=== PATIENT | male | born 2000 | race Caucasian/White ===

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

== ENCOUNTER 2022-06-10 12:28 | Emergency (ER) | payer BC, OTHER ==
--- NOTE | 2022-06-10 15:16 | RAD REPORT ---
EXAM DESCRIPTION: RAD - Ankle Left 3 View -06/10/2022 3:07 pm CLINICAL HISTORY: Left ankle pain status post injury FINDINGS: No fracture or dislocation is seen. Soft tissue swelling
--- NOTE | 2022-06-10 15:17 | RAD REPORT ---
EXAM DESCRIPTION: RAD - Foot Left 3 View - 06/10/2022 3:07 pm CLINICAL HISTORY: Left Foot pain status post injury FINDINGS: No fracture or dislocation is seen.
--- NOTE | 2022-06-10 16:24 | ER ---
Nurse's Notes [facility] Name: David Hancock Age: 22 yrs Sex: Male : 2000 Arrival Date: 06/10/2022 Time: 12:34 Bed 11 Private MD: Diagnosis: Sprain of ankle Presentation: 06/10 13:00 Chief complaint: Patient states: left ankle pain. Pt reports he stepped wrong and aa5 rolled left ankle yesterday. Coronavirus screen: At this time, the client does not indicate any symptoms associated with coronavirus-19. Ebola Screen: Patient denies travel to an Ebola-affected area in the 21 days before illness onset. Initial Sepsis Screen: Does the patient meet any 2 criteria? No. Patient's initial sepsis screen is negative. Does the patient have a suspected source of infection? No. Patient's initial sepsis screen is negative. Risk Assessment: Do you want to hurt yourself or someone else? Patient reports no desire to harm self or others. Onset of symptoms was June 09, 2022. 13:00 Acuity: BRANDIN 4 aa5 13:00 Acuity: BRANDIN 4 aa5 13:00 Method Of Arrival: Ambulatory aa5 Historical: - Allergies: 13:00 No Known Allergies; aa5 - PMHx: 13:00 None; aa5 - PSHx: 13:00 Left wrist; L ankle; aa5 - Immunization history:: Adult Immunizations unknown. - Social history:: Smoking status: Patient reports the use of cigarette tobacco products, denies chronic smoking, but will smoke occasionally. Screenin:33 Abuse screen: Denies threats or abuse. Nutritional screening: No deficits noted. jd3 Tuberculosis screening: No symptoms or risk factors identified. Fall Risk None identified. Assessment: 15:58 General: Appears comfortable, Behavior is cooperative, appropriate for age. Pain: em6 Complains of pain in left ankle Pain currently is 10 out of 10 on a pain scale. Quality of pain is described as throbbing, pulsating. Neuro: Rush Agitation-Sedation Scale (RASS): 0 - Alert and Calm Level of Consciousness is awake, alert, obeys commands, Oriented to person, place, time, situation. Cardiovascular: Heart tones present Patient's skin is warm and dry. Respiratory: Airway is patent Respiratory effort is even, unlabored, Respiratory pattern is regular, symmetrical, Breath sounds are clear bilaterally. GI: No signs and/or symptoms were reported involving the gastrointestinal system. : No signs and/or symptoms were reported regarding the genitourinary system. EENT: No signs and/or symptoms were reported regarding the EENT system. Derm: No signs and/or symptoms reported regarding the dermatologic system. Musculoskeletal: Range of motion: limited in left ankle Swelling present in left ankle. 16:33 Reassessment: Patient appears in no apparent distress at this time. Patient and/or jd3 family updated on plan of care and expected duration. Pain level reassessed. Patient is alert, oriented x 3, equal unlabored respirations, skin warm/dry/pink. Vital Signs: 13:01 BP 139 / 64; Pulse 66; Resp 16 S; Temp 99.0(TE); Pulse Ox 99% on R/A; Weight 86.18 kg aa5 (R); Height 6 ft. 1 in. (185.42 cm) (R); 13:01 Body Mass Index 25.07 (86.18 kg, 185.42 cm) aa5 ED Course: 12:34 Patient arrived in ED. am2 12:51 Matt Sandhu PA is PHCP. [facility] 12:51 Phil Soriano MD is Attending Physician. [facility] 13:00 Triage completed. aa5 13:00 Arm band placed on. aa5 15:08 Ankle Left 3 View XRAY In Process Unspecified. EDMS 15:08 Foot Left 3 View XRAY In Process Unspecified. EDMS 16:24 Morris Hay MD is Referral Physician. [facility] 16:32 Lore Moy, GRACIELA is Primary Nurse. iw 16:33 Patient has correct armband on for positive identification. Bed in low position. Call jd3 light in reach. Side rails up X 1. Adult w/ patient. 16:33 No provider procedures requiring assistance completed. Patient did not have IV access jd3 during this emergency room visit. Administered Medications: No medications were administered Medication: 16:33 VIS not applicable for this client. jd3 Outcome: 16:24 Discharge ordered by . isabelm 16:32 Patient left the ED. iw 16:33 Discharged to home ambulatory, with family. jd3 16:33 Discharge instructions given to patient, Instructed on discharge instructions, follow up and referral plans. medication usage, Demonstrated understanding of instructions, follow-up care, medications, Prescriptions given X 1. 16:33 Condition: stable jd3 Signatures: Dispatcher [employer] Matt Parson PA PA jmm Williams, Irene RN Yaritza Kelly RN RN aa5 Rebeca Lema Jonathon, RN RN jd3 Kadie Gurrola RN RN em6 Corrections: (The following items were deleted from the chart) 13:01 13:00 PMHx: Anxiety; aaSilver acuña
--- NOTE | 2022-06-10 16:24 | EDPHYS ---
Physician Documentation [facility] Name: David Hancock Age: 22 yrs Sex: Male : 2000 Arrival Date: 06/10/2022 Time: 12:34 Bed 11 Private MD: ED Physician Phil Soriano HPI: 06/10 13:02 This 22 yrs old Male presents to ER via Ambulatory with complaints of Ankle Injury - jmm pain. 13:02 The patient presents with an injury, pain. Onset: The symptoms/episode began/occurred jmm acutely, 1 day(s) ago. Is a 22-year-old male with no chronic medical conditions presents emerged part with complaints of swelling to the left ankle. Patient states he stepped in a pothole. Denies other injury. Patient states having a history of a Zarate fracture in the same foot.. Historical: - Allergies: 13:00 No Known Allergies; aa5 - PMHx: 13:00 None; aa5 - PSHx: 13:00 Left wrist; L ankle; aa5 - Immunization history:: Adult Immunizations unknown. - Social history:: Smoking status: Patient reports the use of cigarette tobacco products, denies chronic smoking, but will smoke occasionally. ROS: 13:02 Constitutional: Negative for fever, chills, and weight loss, Cardiovascular: Negative jmm for chest pain, palpitations, and edema, Respiratory: Negative for shortness of breath, cough, wheezing, and pleuritic chest pain. 13:02 MS/extremity: Positive for injury or acute deformity, pain, swelling. 13:02 All other systems are negative. Exam: 13:02 Constitutional: This is a well developed, well nourished patient who is awake, alert, jmm and in no acute distress. Head/Face: atraumatic. Eyes: EOMI, no conjunctival erythema appreciated ENT: Moist Mucus Membranes Neck: Trachea midline, Supple Chest/axilla: Normal chest wall appearance and motion. Cardiovascular: Regular rate and rhythm. No edema appreciated Respiratory: Normal respirations, no respiratory distress appreciated Abdomen/GI: Non distended Back: Normal ROM Skin: General appearance color normal 13:02 Musculoskeletal/extremity: Swelling noted to left ankle, pain noted to the base of the fifth metatarsal, compartments are soft, full dorsalis pedis pulse, neurovascular intact. 13:02 Skin: Appearance: Color: normal in color. 13:02 Neuro: Orientation: is normal, Mentation: is normal, Memory: is normal. 13:02 Psych: Behavior/mood is pleasant, cooperative. Vital Signs: 13:01 BP 139 / 64; Pulse 66; Resp 16 S; Temp 99.0(TE); Pulse Ox 99% on R/A; Weight 86.18 kg aa5 (R); Height 6 ft. 1 in. (185.42 cm) (R); 13:01 Body Mass Index 25.07 (86.18 kg, 185.42 cm) aa5 MDM: 13:02 Patient medically screened. [facility] 16:23 Data reviewed: vital signs, nurses notes. Counseling: I had a detailed discussion with [facility] the patient and/or guardian regarding: the historical points, exam findings, and any diagnostic results supporting the discharge/admit diagnosis, radiology results, the need for outpatient follow up, to return to the emergency department if symptoms worsen or persist or if there are any questions or concerns that arise at home. 06/10 13:03 Order name: Ankle Left 3 View XRAY; Complete Time: 15:20 [facility] 06/10 13:03 Order name: Foot Left 3 View XRAY; Complete Time: 15:20 [facility] 06/10 15:20 Order name: Joe wrap-joint; Complete Time: 16:06 [facility] Administered Medications: No medications were administered Disposition Summary: 06/10/22 16:24 Discharge Ordered Location: Home [facility] Condition: Stable [facility] Diagnosis - Sprain of ankle [facility] Followup: [facility] - With: Morris Hay MD - When: 2 - 3 days - Reason: Recheck today's complaints, Continuance of care, Re-evaluation by your physician Discharge Instructions: - Discharge Summary Sheet [facility] - Ankle Sprain [facility] Forms: - Medication Reconciliation Form [facility] - Thank You Letter [facility] - Antibiotic Education [facility] - Prescription Opioid Use [facility] Prescriptions: - Diclofenac Sodium 75 mg Oral Tablet Sustained Release - take 1 tablet by ORAL route 2 times per day; 30 tablet; Refills: 0, Product [facility] Selection Permitted Signatures: Dispatcher [employer] Matt Parson PA PA jmm Calderon, Audri RN RN aa5 Corrections: (The following items were deleted from the chart) 13:01 13:00 PMHx: Anxiety; aa5 aa5
[2022-06-10 17:42] VITALS: BP 139/64; TEMP 99; O2SAT 99
== END 2022-06-10 16:32 | disposition home or self-care (01) ==
LOC: ER 12:28
DX: S93.402A Sprain of unspecified ligament of left ankle, initial encounter (principal); F17.210 Nicotine dependence, cigarettes, uncomplicated
CPT/HCPCS: 99283

== ENCOUNTER 2022-06-12 18:56 | Emergency (ER) | payer BC ==
--- NOTE | 2022-06-12 20:19 | RAD REPORT ---
EXAM DESCRIPTION: CT - [id number] - 06/12/2022 8:05 pm CLINICAL HISTORY: Trauma, head and neck injury. Head injury COMPARISON: No comparisons TECHNIQUE: Axial 5 mm thick images of the head were obtained. Axial 2 mm thick images of the cervical spine were obtained with sagittal and coronal reconstruction images generated and reviewed. All CT scans are performed using dose optimization technique as appropriate and may include automated exposure control or mA/KV adjustment according to patient size. FINDINGS: CT HEAD WITHOUT CONTRAST: No acute hemorrhage, hydrocephalus or extra-axial collection is identified.No areas of brain edema or midline shift. The paranasal sinuses and mastoids are clear.The calvarium is intact. CT CERVICAL SPINE WITHOUT CONTRAST: No fracture or subluxation.No prevertebral soft tissues swelling is identified. IMPRESSION: No acute intracranial or cervical spine findings.
[2022-06-12] MEDS ORDERED: LORazepam 2 MG/ML VIAL ONE (20:47)
[2022-06-12 21:03] LABS: Absolute Lymphocytes (CBC) 1.9 K/uL (0.7-4.9); Hematocrit 42.8 % (39.6-49.0); Lymphocytes % 23.2 % (15.3-44.8); MCV 82.8 fL (80-100); MPV 7.6 fL (7.6-11.3); RBC Red Blood Cell Count 5.18 M/uL (4.33-5.43)
[2022-06-12 21:23] LABS: Potassium 3.4 mmol/L (3.5-5.1)
--- NOTE | 2022-06-12 21:35 | ER ---
Nurse's Notes [facility] Name: David Hancock Age: 22 yrs Sex: Male : 2000 Arrival Date: 06/12/2022 Time: 19:19 Bed 11 Private MD: Diagnosis: Anxiety disorder, unspecified;Hyperventilation;Syncope;Unspecified injury of head, initial encounter Presentation: 06/12 19:42 Chief complaint: Patient states: I feel dizzy, short of breath, and having chest pain. bm7 I passed out and hit me head. Coronavirus screen: At this time, the client does not indicate any symptoms associated with coronavirus-19. Ebola Screen: No symptoms or risks identified at this time. Initial Sepsis Screen: Does the patient meet any 2 criteria? No. Patient's initial sepsis screen is negative. Does the patient have a suspected source of infection? No. Patient's initial sepsis screen is negative. Risk Assessment: Do you want to hurt yourself or someone else? Patient reports no desire to harm self or others. Onset of symptoms is unknown. 19:42 Method Of Arrival: Law Enforcement: [employer] [facility] 19:42 Acuity: BRANDIN 3 bm7 Triage Assessment: 19:49 General: Appears distressed, uncomfortable, Behavior is agitated, anxious, restless. bm7 Pain: Complains of pain in chest and forehead. EENT: No deficits noted. No signs and/or symptoms were reported regarding the EENT system. Neuro: No deficits noted. Neuro: Level of Consciousness is awake, alert, obeys commands, Oriented to person, place, time, situation, Buyer Planner are equal bilaterally Weakness Gait is steady, Speech is normal, Facial symmetry appears normal, Facial droop on right, Pupils are PERRLA, Reports dizziness, headache a syncopal episode weakness. Cardiovascular: Chest pain is described as mild. Respiratory: Reports shortness of breath at rest on exertion Airway is patent Respiratory effort is even, unlabored, Respiratory pattern is regular, symmetrical, Breath sounds are clear bilaterally. GI: No deficits noted. No signs and/or symptoms were reported involving the gastrointestinal system. : No deficits noted. No signs and/or symptoms were reported regarding the genitourinary system. Derm: No deficits noted. No signs and/or symptoms reported regarding the dermatologic system. Musculoskeletal: No deficits noted. No signs and/or symptoms reported regarding the musculoskeletal system. Injury Description: Laceration sustained to forehead is jagged, superficial, 0.5 to 2.5 cm long, not bleeding, was sustained 1-2 hours ago. no active bleeding noted at this time. Historical: - Allergies: 19:49 No Known Allergies; bm7 - Home Meds: 19:49 Prozac Oral once daily [Active]; bm7 - PMHx: 19:49 Anxiety; bm7 - PSHx: 19:49 Left wrist; L ankle; bm7 - Immunization history:: Adult Immunizations up to date. - Social history:: Smoking status: Reported history of juuling and/or vaping. Screenin:54 Abuse screen: Denies threats or abuse. Nutritional screening: No deficits noted. bm7 Tuberculosis screening: No symptoms or risk factors identified. Fall Risk None identified. Assessment: 20:54 Reassessment: No changes from previously documented assessment. Patient and/or family [facility] updated on plan of care and expected duration. Pain level reassessed. Patient is alert, oriented x 3, equal unlabored respirations, skin warm/dry/pink. Vital Signs: 19:42 BP 137 / 68; Pulse 123; Resp 24; Temp 98.3(TE); Pulse Ox 100% on R/A; Weight 86.18 kg bm7 (R); Height 6 ft. 11 in. (210.82 cm); Pain 10/10; 20:56 BP 140 / 70; Pulse 100; Resp 20; Pulse Ox 100% on R/A; bm7 22:19 BP 142 / 68; Pulse 84; Resp 16; Pulse Ox 100% on R/A; bm7 19:42 Body Mass Index 19.39 (86.18 kg, 210.82 cm) bm7 ED Course: 19:19 Patient arrived in ED. ja2 19:23 Chu Nicole MD is Attending Physician. kdr 19:41 Hanna Collins, GRACIELA is Primary Nurse. bm7 19:49 Triage completed. bm7 19:49 Arm band placed on right wrist. bm7 20:07 CT Head C Spine In Process Unspecified. EDMS 20:54 No apparent distress. Awaiting lab results. bm7 20:54 Patient has correct armband on for positive identification. Bed in low position. Call [facility] light in reach. Side rails up X2. Adult w/ patient. Security at bedside. Client placed on continuous cardiac and pulse oximetry monitoring. NIBP monitoring applied. teletypesetter monitor on. Warm blanket given. 20:54 Initial lab(s) drawn, by me, sent to lab. EKG done, by ED staff, reviewed by Chu Nicole MD. Inserted saline lock: 20 gauge in right antecubital area, using aseptic technique. Blood collected. Missed attempt(s): 20 gauge in left antecubital area. Bleeding controlled, band aid applied, catheter tip intact. Patient maintains SpO2 saturation greater than 95% on room air. 22:19 No provider procedures requiring assistance completed. intact, bleeding controlled, No bm7 redness/swelling at site. Pressure dressing applied. Administered Medications: 20:54 Drug: Ativan (LORazepam) 1 mg Route: IVP; Site: right antecubital; bm7 22:20 Follow up: Response: Anxiety decreased bm7 22:05 Drug: Motrin (ibuprofen) 800 mg Route: PO; bm7 22:21 Follow up: Response: Pain is decreased bm7 Medication: 20:54 VIS not applicable for this client. bm7 Outcome: 21:35 Discharge ordered by . kdr 22:19 Discharged to Law Enforcement bm7 22:19 Condition: good 22:19 Discharge instructions given to patient, police, Instructed on discharge instructions, follow up and referral plans. medication usage, Demonstrated understanding of instructions, follow-up care, medications, Prescriptions given X 1. 22:21 Patient left the ED. bm7 Signatures: Dispatcher [employer] EDMS Chu Nicole MD MD kdr McCarthy, Brittany, RN RN Shae Malone
--- NOTE | 2022-06-12 21:36 | EDPHYS ---
Physician Documentation [facility] Name: David Hancock Age: 22 yrs Sex: Male : 2000 Arrival Date: 06/12/2022 Time: 19:19 Bed 11 Private MD: ED Physician Chu Nicole HPI: 06/12 19:37 This 22 yrs old Male presents to ER via Unassigned with complaints of Hyperventilating kdr and head injury/syncope. 19:37 Patient states that he has been having anxiety attack and passed out several times. He kdr is not sure how long he was out. He is in custody but feels that his cell has not been observed while he was having these episodes. Onset: The symptoms/episode began/occurred suddenly. Severity of symptoms: At their worst the symptoms were moderate severe incapacitating in the emergency department the symptoms have improved mildly. The patient has experienced similar episodes in the past, a few times. The patient has not recently seen a physician. Patient has been in correction custody since 2 PM yesterday. Patient has taken Prozac in the past but has been off for several months. Historical: - Allergies: 19:49 No Known Allergies; bm7 - Home Meds: 19:49 Prozac Oral once daily [Active]; bm7 - PMHx: 19:49 Anxiety; bm7 - PSHx: 19:49 Left wrist; L ankle; bm7 - Immunization history:: Adult Immunizations up to date. - Social history:: Smoking status: Reported history of juuling and/or vaping. ROS: 19:37 Constitutional: Negative for fever, chills, and weight loss, Eyes: Negative for injury, kdr pain, redness, and discharge, Neck: Negative for injury, pain, and swelling, Cardiovascular: Negative for chest pain, palpitations, and edema, Respiratory: Negative for shortness of breath, cough, wheezing, and pleuritic chest pain, Abdomen/GI: Negative for abdominal pain, nausea, vomiting, diarrhea, and constipation, Back: Negative for injury and pain, : Negative for injury, bleeding, discharge, and swelling, MS/Extremity: Negative for injury and deformity. 19:37 Skin: Positive for The patient has abrasion and contusion with small hematoma to the right frontal area of his forehead. There is no other apparent injury.. 19:37 Neuro: Positive for dizziness, syncope. Exam: 19:37 Constitutional: This is a well developed, well nourished patient who is awake, alert, kdr and in no acute distress. Head/Face: Normocephalic, atraumatic. Eyes: Pupils equal round and reactive to light, extra-ocular motions intact. Lids and lashes normal. Conjunctiva and sclera are non-icteric and not injected. Cornea within normal limits. Periorbital areas with no swelling, redness, or edema. Neck: Trachea midline, no thyromegaly or masses palpated, and no cervical lymphadenopathy. Supple, full range of motion without nuchal rigidity, or vertebral point tenderness. No Meningismus. Chest/axilla: Normal chest wall appearance and motion. Nontender with no deformity. No lesions are appreciated. Cardiovascular: Regular rate and rhythm with a normal S1 and S2. No gallops, murmurs, or rubs. Normal PMI, no JVD. No pulse deficits. Respiratory: Lungs have equal breath sounds bilaterally, clear to auscultation and percussion. No rales, rhonchi or wheezes noted. No increased work of breathing, no retractions or nasal flaring. Abdomen/GI: Soft, non-tender, with normal bowel sounds. No distension or tympany. No guarding or rebound. No evidence of tenderness throughout. Back: No spinal tenderness. No costovertebral tenderness. Full range of motion. MS/ Extremity: Pulses equal, no cyanosis. Neurovascular intact. Full, normal range of motion. Neuro: Awake and alert, GCS 15, oriented to person, place, time, and situation. Cranial nerves II-XII grossly intact. Motor strength 5/5 in all extremities. Sensory grossly intact. Cerebellar exam normal. Normal gait. Psych: Awake, alert, with orientation to person, place and time. Behavior, mood, and affect are within normal limits. 19:37 Skin: Appearance: normal except for affected area, injury, abrasion(s), contusion(s), of the forehead. 20:21 ECG was reviewed by the Attending Physician. kdr Vital Signs: 19:42 BP 137 / 68; Pulse 123; Resp 24; Temp 98.3(TE); Pulse Ox 100% on R/A; Weight 86.18 kg bm7 (R); Height 6 ft. 11 in. (210.82 cm); Pain 10/10; 20:56 BP 140 / 70; Pulse 100; Resp 20; Pulse Ox 100% on R/A; bm7 22:19 BP 142 / 68; Pulse 84; Resp 16; Pulse Ox 100% on R/A; bm7 19:42 Body Mass Index 19.39 (86.18 kg, 210.82 cm) bm7 MDM: 21:35 Patient medically screened. kdr 06/13 04:01 Data reviewed: vital signs, nurses notes, lab test result(s), radiologic studies. kdr Counseling: I had a detailed discussion with the patient and/or guardian regarding: the historical points, exam findings, and any diagnostic results supporting the discharge/admit diagnosis, lab results, radiology results, the need for outpatient follow up. 06/12 19:33 Order name: CBC with Diff; Complete Time: 21:19 kdr 06/12 19:33 Order name: Chem 7; Complete Time: 21:33 kdr 06/12 19:33 Order name: Troponin High Sensitivity; Complete Time: 21:33 kdr 06/12 19:33 Order name: CT Head C Spine; Complete Time: 21:19 kdr 06/12 19:33 Order name: EKG - Nurse/Tech; Complete Time: 20:07 kdr 06/12 21:51 Order name: Misc. Order: Clean and dress head wound, apply Polysporin ; Complete Time: kdr 21:53 EC/14 20:21 Rate is 51 beats/min. Rhythm is regular, Sinus bradycardia with No ectopy. QRS [place] is kdr Normal. CT interval is normal. QRS interval is normal. Clinical impression: NSR w/ Non-specific ST/T Changes and Sinus bradycardia. Administered Medications: 20:54 Drug: Ativan (LORazepam) 1 mg Route: IVP; Site: right antecubital; bm7 22:20 Follow up: Response: Anxiety decreased bm7 22:05 Drug: Motrin (ibuprofen) 800 mg Route: PO; bm7 22:21 Follow up: Response: Pain is decreased bm7 Disposition Summary: 06/12/22 21:35 Discharge Ordered Location: Home kdr Problem: new kdr Symptoms: have improved kdr Condition: Stable kdr Diagnosis - Anxiety disorder, unspecified kdr - Hyperventilation kdr - Syncope kdr - Unspecified injury of head, initial encounter kdr Followup: kdr - With: Private Physician - When: 2 - 3 days - Reason: If symptoms return, Further diagnostic work-up, Recheck today's complaints, Continuance of care, Re-evaluation by your physician Discharge Instructions: - Discharge Summary Sheet kdr - Syncope, [id number] kdr - Panic Attack, [id number] kdr - Head Injury, Adult, [id number] kdr - Generalized Anxiety Disorder, Adult kdr Forms: - Medication Reconciliation Form kdr - Thank You Letter kdr Prescriptions: - Ativan 1 mg Oral Tablet - take 1 tablet by ORAL route At bedtime As needed; 6 tablet; Refills: 0, Product kdr Selection Permitted Signatures: Dispatcher [employer] EDChu Abernathy MD MD kdr Hanna Collins RN RN bm7
[2022-06-12] MEDS ORDERED: IBUPROFEN 400 MG TAB ONE (22:04)
[2022-06-12] MEDS ORDERED: BACI/NEOMYCIN/POLY OINT 15GM TOP ONE (22:10)
[2022-06-13 20:29] VITALS: TEMP 98.3; O2SAT 100
[2022-06-13 20:49] VITALS: BP 142/68
== END 2022-06-12 22:21 | disposition home or self-care (01) ==
LOC: ER 18:56
DX: R06.4 Hyperventilation (principal); R55 Syncope and collapse; S09.90XA Unspecified injury of head, initial encounter
CPT/HCPCS: 36415; 70450; 72125; 80048; 84484; 85025; 93005; 96374; 99285